=== PATIENT | female | born 1965 | race Two or more races ===

== ENCOUNTER 2019-02-02 15:42 | Emergency (ER) | payer MEDICAID, OTHER ==
[~2019-02-02] VITALS: Ht 162.6 cm; Wt 58.1 kg
[2019-02-02 16:03] VITALS: BP 136/74
== END 2019-02-02 16:57 | disposition home or self-care (01) ==
LOC: ER 15:49
DX: S16.1XXA Strain of muscle, fascia and tendon at neck level, initial encounter (principal); V49.9XXA Car occupant (driver) (passenger) injured in unspecified traffic accident, initial encounter; Y93.89 Activity, other specified; Y99.8 Other external cause status; Y92.89 Other specified places as the place of occurrence of the external cause
CPT/HCPCS: 72040